=== PATIENT | female | born 1945 | race Two or more races ===

== ENCOUNTER 2017-12-04 08:17 | Day surgery (SDC) | payer MEDICAID ==
[~2017-12-04] VITALS: Ht 160 cm; Wt 60.5 kg
[~2017-12-04 08:17] MED LIST: SODIUM CHLORIDE 0.9% 1,000 ML IV ONE
[2017-12-04] MEDS ORDERED: SODIUM CHLORIDE 0.9% 1,000 ML IV ONE (08:30)
[2017-12-04] MEDS ORDERED: PROPOFOL 1% 20 ML VIAL IVP ONE (12:00)
== END 2017-12-04 11:20 | disposition home or self-care (01) ==
LOC: SURGERY 08:17 → EDSEX 10:00 → SURGERY 11:20
PROVIDERS: ATTEND Internal Medicine Gastroenterology
DX: K64.8 Other hemorrhoids (principal); Z79.899 Other long term (current) drug therapy
CPT/HCPCS: 45378; J2704; J7030